=== PATIENT | male | born 1955 | race Caucasian/White ===

== ENCOUNTER 2017-04-14 00:24 | Emergency (ER) | payer BC ==
--- NOTE | 2017-04-14 01:09 | ED ---
I, Ramón,Hortencia, scribed for Edinson Oliveros MD on 04/14/17 at 0055 . Palpitations / Dysrhythmia - HPI Summary HPI Summary: This 61 y/o male presents to ED for fluttering/skipping heart beat since this morning. Positive chest discomfort with chest tightness and general weakness. Pt expresses concern over decreased pulse, reporting pulse of 43 yesterday. Pt is currently on diltiazem and ramipril. PMHx includes recently diagnosed asbestosis and HTN. Primary care involves Dr. Scott. - History of Current Complaint Chief Complaint: EDDysrhythmPalp Time Seen by Provider: 04/14/17 00:48 Hx Obtained From: Patient, Medical Records Onset/Duration: Sudden Onset Timing: Constant Character: Fluttering, Skipped Beats Aggravating: Nothing Alleviating: Nothing Associated Signs & Symptoms: Lightheadedness - Allergy/Home Medications Allergies/Adverse Reactions: Allergies Allergy/AdvReac Type Severity Reaction Status Date / Time beta blockers Allergy "heart Uncoded 03/05/17 11:33 seizure" Home Medications: Home Medications Aspirin [Hailey Aspirin 325 MG] 325 mg PO DAILY 04/14/17 [History Confirmed 04/14] Cholecalciferol [Vitamin D] 1,000 unit PO DAILY 04/14/17 [History Confirmed 02/24] PMH/Surg Hx/FS Hx/Imm Hx Endocrine/Hematology History: Denies: Hx Diabetes, Hx Thyroid Disease Cardiovascular History: Reports: Hx Hypertension - ON MEDICATION Respiratory History: Denies: Hx Asthma, Hx Chronic Obstructive Pulmonary Disease (COPD) GI History: Denies: Hx Ulcer - Surgical History Surgery Procedure, Year, and Place: hernia repair/ lt knee , ANGIOPLASTY Infectious Disease History: No Infectious Disease History: Denies: Hx Clostridium Difficile, Hx Hepatitis, Hx Human Immunodeficiency Virus (HIV), Hx of Known/Suspected MRSA, Hx Shingles, Hx Tuberculosis, Traveled Outside the [place] in Last 30 Days - Family History Known Family History: Positive: Cardiac Disease - Positive to father - Social History Alcohol Use: Daily Alcohol Amount: gave it up for lent (usually 3 a day or more) Hx Substance Use: No Substance Use Type: Reports: None Hx Tobacco Use: No Smoking Status (MU): Never Smoked Tobacco Type: Cigarettes Amount Used/How Often: quit smoking 35 years ago Review of Systems Negative: Fever Positive: Palpitations - fluttering/skipped, Chest Pain - chest tightness Neurological: Other - Positive for lightheadedness Positive: Weakness - general All Other Systems Reviewed And Are Negative: Yes Physical Exam Triage Information Reviewed: Yes Vital Signs On Initial Exam: Initial Vitals Temp Pulse Resp BP Pulse Ox 97.9 F 62 16 144/67 97 04/14/17 00:29 04/14/17 00:29 04/14/17 00:29 04/14/17 00:29 04/14/17 00:29 Vital Signs Reviewed: Yes Appearance: Positive: Well-Appearing, No Pain Distress Skin: Positive: Warm Eyes: Positive: KALEY ENT: Positive: Hearing grossly normal Neck: Positive: Supple Respiratory/Lung Sounds: Positive: Clear to Auscultation, Breath Sounds Present Cardiovascular: Positive: RRR Abdomen Description: Positive: Nontender, Soft Bowel Sounds: Positive: Present Musculoskeletal: Positive: Strength/ROM Intact Neurological: Positive: Alert, Oriented to Person Place, Time Diagnostics - Vital Signs Vital Signs Temp Pulse Resp BP Pulse Ox 04/14/17 00:29 97.9 F 62 16 144/67 97 - Laboratory Result Diagrams: 04/14/17 01:13 04/14/17 01:13 Lab Statement: Any lab studies that have been ordered have been reviewed, and results considered in the medical decision making process. - EKG 0039 Cardiac Rate: NL EKG Rhythm: Sinus Rhythm - 60 bpm Re-Evaluation - Re-Evaluation First Eval Change: Improved - results d/w pt, rare ectopic best, will d/c f/u pcp Course/Dx - Course Assessment/Plan: This 61 y/o male presents to ED for palpitation since this morning. Pt expresses concern about depressed HR, which was 43 bpm at home per pt. EKG performed in ED is wnl with NSR with 60 bpm. Bloodwork is wnl except blood glucose of 109 bpm. Pt is discharged with outpatient f/u. - Diagnoses Provider Diagnoses: Palpitation Discharge - Discharge Plan Condition: Stable Disposition: HOME Patient Education Materials: Palpitations (ED) Referrals: Sunil Scott MD [Primary Care Provider] - 2 Days The documentation as recorded by the Ramón arango Soohyun accurately reflects the service I personally performed and the decisions made by me, Edinson Oliveros MD.
[2017-04-14 01:33] LABS: Hematocrit 43 % (42-52); Hemoglobin 14.7 g/dl (14.0-18.0); Mean Corpuscular HGB Conc 34 g/dl (31-36); Mean Corpuscular Hemoglobin 29 pg (27-31); Mean Corpuscular Volume 85 fL (80-94); Mean Platelet Volume 10 um3 (7.4-10.4); Red Blood Count 5.08 10^6/ul (4.0-5.4); Red Cell Distribution Width 14 % (10.5-15); White Blood Count 7.2 10^3/ul (3.5-10.8)
[2017-04-14 01:45] LABS: Albumin 3.9 g/dL (3.2-5.2); BUN/Creatinine Ratio 17.5 (8-20); Calcium 9.1 mg/dL (8.6-10.3); EGFR African American 100.5 (>60); EGFR Non-African American 78.2 (>60); Magnesium 2.1 mg/dL (1.9-2.7); Potassium 3.9 mmol/L (3.5-5.0); Total Bilirubin 0.4 mg/dL (0.2-1.0); Total Protein 6.9 g/dL (6.4-8.9)
[2017-04-14 01:53] LABS: TSH (Thyroid Stimulating Horm) 4.63 mcIU/mL (0.34-5.60)
[2017-04-14 02:18] VITALS: BP 114/48
== END 2017-04-14 02:23 | disposition home or self-care (01) ==
LOC: ED 00:24
DX: R00.2 Palpitations (principal); R42 Dizziness and giddiness; R53.1 Weakness
CPT/HCPCS: 36415; 80053; 83735; 84443; 84484; 85025; 93005; 99282

== ENCOUNTER → 2019-08-07 14:24 | Day surgery (SDC) | payer BC ==
[~2019-08-07 14:24] MED LIST: Buffered Lidocaine 1% SYRIN* 1 ML/SYRINGE INTRADERM ONE; Bupivacaine 0.5%* 50 ML MDV VIAL ONE; Dexamethasone IV* 4 MG/ML 1 ML (4 MG) IV SLOW PU ONE; Dexamethasone IV* 4 MG/ML 1 ML (4 MG) ONE; DiMENhydriNATE IV* 50 MG/ML VIAL IV PUSH PRN; EPHEDrine (Pressors)* 50 MG/ML VIAL ONE; Famotidine IV* 10 MG/ML 2 ML (20 mg) IV ONE; Famotidine IV* 10 MG/ML 2 ML (20 mg) ONE; HYDROcodone/ACETAMIN 5-325 MG* 1 TAB PO PRN; Ketorolac INJ* 30 MG/ML 1 ML VIAL IV PRN; Ketorolac INJ* 30 MG/ML 1 ML VIAL ONE; Lactated Ringers 1000 ML Bag* 1,000 ML IV SCH; Lidocaine 2% PF * 5 ML VIAL ONE; Naloxone* 0.4 MG/ML 1 ML VIAL IV PRN; Ondansetron INJ* 2 MG/ML VIAL ONE; Propofol* 10 MG/ML 20 ML BTL ONE; Rocuronium* 10 MG/ML VIAL ONE; Sugammadex * 500 MG/5 ML VIAL IV PUSH ONE; ceFOXitin 2 GM IVPREMIX* 2 GM/50 ML BAG ONE; fentaNYL* 50 MCG/ML 2 ML VIAL (100 MCG VIAL) IV PRN; fentaNYL* 50 MCG/ML 2 ML VIAL (100 MCG VIAL) ONE; oxyCODONE/Acetamin 5/325 MG* TAB PO PRN
[2019-08-07 19:27] VITALS: BP 174/78
--- NOTE | 2019-08-08 05:04 | OP ---
DATE OF OPERATION: 08/07/19 - [facility] DATE OF : 51 SURGEON: Davi Ramos MD COOKER LOADER: Trupti Barber NP PRE-OP DIAGNOSIS: Umbilical hernia. POST-OP DIAGNOSES: Ventral hernia and umbilical hernia. OPERATIVE PROCEDURE: Repair of ventral hernia and umbilical hernia with mesh. INDICATIONS: umbilical hernia. Risks included, but not limited to, bleeding, infection, recurrence of the hernia, injury to intraabdominal contents were explained to the patient, who seemed to understand and agreed to the procedure and all questions were answered. DESCRIPTION OF PROCEDURE: The patient was taken to the operating room and placed supine. Preoperative antibiotics were given. After the successful induction of general endotracheal anesthesia, the abdomen was prepped and draped in sterile fashion. A 5-mm trocar was placed in the subxiphoid position under direct visualization of the camera. Using a bladeless Optiview trocar, a pneumoperitoneum was achieved with 15 mmHg. A camera was placed in the abdomen and the abdomen was scanned. There was no obvious injury from trocar placement. An 8-mm right upper quadrant and right lateral abdominal trocar was placed under direct visualization of the camera. The 5-mm trocar was replaced with an 8-mm trocar. The patient was tilted slightly towards his left towards the robot. The robot was brought in and docked. Adhesions to the omentum were gently taken down to the hernia and the peritoneum was taken down creating a peritoneal flap. It became obvious that this was a smaller ventral hernia cranial to the umbilicus and a small umbilical hernia was noted. Both defects were closed with a running 0 PDS barbed suture. A Ventralex patch, 4.5 cm in diameter was brought in, sutured up against the anterior abdominal wall covering both defect sites. The peritoneal flap was then closed using running 3 -0 V-Loc suture covering the mesh completely, so none of the mesh or suture was exposed to the bowel. The abdomen was scanned. There was no obvious injury. EBL minimal. Hemostasis was intact. Pneumoperitoneum was released from the abdomen. The trocars were removed. Skin was closed with Monocryl and glue. He tolerated the procedure well. He was extubated and taken to Recovery in stable condition. [id number]/[facility]: [id number] [facility]
== END | disposition home or self-care (01) ==
LOC: OR 14:24
PROVIDERS: ATTEND Surgery
DX: K43.9 Ventral hernia without obstruction or gangrene (principal); K42.9 Umbilical hernia without obstruction or gangrene; I10 Essential (primary) hypertension; E78.5 Hyperlipidemia, unspecified; F32.9 Major depressive disorder, single episode, unspecified; Z87.891 Personal history of nicotine dependence; E78.00 Pure hypercholesterolemia, unspecified; I25.10 Atherosclerotic heart disease of native coronary artery without angina pectoris
CPT/HCPCS: 49652; S2900; C1781; J0694; J1100; J1885; J2405; J2704; J3010; J3490